=== PATIENT | female | born 1980 | race Caucasian/White ===

== ENCOUNTER → 2016-12-10 | Outpatient (CLI) | payer OTHER ==
[~2016-12-10] MED LIST: /AUGM25TA OR; ACET500C OR; ALENDRONATE OR; CIPR500T19 OR; DETR4CAP OR; GAS; GLUC500T OR; LISI10TA4 OR; MIRALEX OR; PREPARATION H TOP; TRIC145T19 OR; VICODINES TAB OR; [UNRECOGNIZED DRUG - CODE] OR; no home meds
[2016-12-12 11:15] LABS: CARCINOEMBRYONIC ANTIGEN 1.3 NG/ML (<2.5)
[2016-12-12 11:43] LABS: CA 125 26.1 U/ML (<30.2)
[2016-12-16 00:06] LABS: HE4 44 pmol/L (0-150)
== END ==
LOC: M SMT 14:13
PROVIDERS: ATTEND Obstetrics & Gynecology
DX: D39.12 Neoplasm of uncertain behavior of left ovary (principal)

== ENCOUNTER → 2016-12-11 | Outpatient (CLI) | payer OTHER ==
--- NOTE | 2016-12-11 14:54 | REP ---
PELVIC SONOGRAPHY: HISTORY: Neoplasm left ovary. Right oophorectomy. Comparison CT study of the pelvis is from December 01, 2016. Comparison pelvic sonography is from September 11, 2016. PELVIC SONOGRAPHIC FINDINGS: Uterine dimensions are enlarged at 11.3 x 4.5 x 6.8 cm. Endometrial echo 0.9 cm thick. Uterine myometrium is somewhat heterogeneous and a 1.9 x 2.6 x 1.3 cm posterior fibroid is believed to be present on transvaginal imaging. No free fluid is noted. The right ovary could not be visualized and is surgically absent by history. The left ovary is quite enlarged measuring 11.8 x 7.2 x 10.7 cm in overall dimension. Multiple large cystic areas are seen comprising the left ovary. There is a tubular structure measuring 7.3 x 1.1 x 1.4 cm, which may relate to the previous suggestion of hydrosalpinx. There are somewhat thick septations in the cystic mass in the left ovary. Cystic components measure 4.3, 3.7, and 6.3 cm in greatest diameter in the three major cystic components. IMPRESSION: 1. Enlarged somewhat heterogeneous uterus containing a 2.6 cm fibroid. 2. Status post right for oophorectomy. 3. Complex enlargement left ovary up to 7.3 cm in overall size. Thickened septations are seen in the cystic components of the left ovary as noted previously. Questioned hydrosalpinx associated with this. Ovarian neoplasm versus endometrioma. Signed by Manuel Desai MD 12/11/2016 03:27 P
== END ==
LOC: M SMT 09:06
PROVIDERS: ATTEND Obstetrics & Gynecology
DX: D39.12 Neoplasm of uncertain behavior of left ovary (principal)

== ENCOUNTER 2017-04-01 09:10 | Emergency (ER) | payer OTHER ==
[~2017-04-01] VITALS: Ht 157.5 cm; Wt 55.0 kg
[2017-04-01] MEDS ORDERED: BUSP10TA PO (09:32)
[2017-04-01] MEDS ORDERED: ONDANSETRON 4 MG ORAL DISINTEGRATING TAB (S0181) PO ONE (10:30)
[2017-04-01] MEDS ORDERED: PERCOCET 5MG/325MG TAB PO ONE (10:30)
[2017-04-01 10:58] LABS: ANION GAP 9 MEQ/L (8-16); BLOOD UREA NITROGEN 9 MG/DL (7-18); CALCIUM LEVEL 8.4 MG/DL (8.5-10.1); CARBON DIOXIDE LEVEL 29 MEQ/L (21-32); CHLORIDE LEVEL 103 MEQ/L (98-107); GLOMERULAR FILTRATION RATE > 60.0 (>60); GLUCOSE, FASTING 83 MG/DL (70-105); POTASSIUM SERUM 3.2 MEQ/L (3.5-5.1); SODIUM LEVEL 141 MEQ/L (136-145)
[2017-04-01 11:04] LABS: CONTROL LINE UCG INT CTR LINE PRESENT
[2017-04-01 11:21] LABS: BASO # 0.1 K/mm3 (0.0-0.2); BASO % 1.6 % (0.0-1.0); EOS # 0.1 K/mm3 (0.0-0.50); EOS % 2.4 % (0.0-3.0); LARGE UNSTAINED CELL # 0.1 K/mm3 (0.0-0.4); LARGE UNSTAINED CELL % 1.6 % (0.0-4.0); LYMPH # 1.6 K/mm3 (1.5-4.5); MEAN CORPUSCULAR HEMOGLOBIN 30.3 pg (27.0-33.0); MEAN CORPUSCULAR HGB CONC 32.9 g/dl (32.0-36.5); MEAN CORPUSCULAR VOLUME 92.3 fl (80.0-96.0); MONO # 0.5 K/mm3 (0.0-0.8); MONO % 8.7 % (0.0-5.0); NEUTROPHILS # 2.9 K/mm3 (1.8-7.7); NEUTROPHILS % 55.7 % (36.0-66.0); PLATELET COUNT, AUTOMATED 387 k/mm3 (150-450); RED CELL DISTRIBUTION WIDTH 19.2 % (11.5-14.5); WHITE BLOOD COUNT 5.1 K/mm3 (4.0-10.0)
--- NOTE | 2017-04-01 12:09 | REP ---
PELVIC ULTRASOUND: Real-time sonographic evaluation of the pelvis performed utilizing transabdominal and endovaginal technique. Comparison is made with a prior study of 12/11/2016. The urinary bladder is not distended and is empty. The uterus measures 9.1 x 5.0 x 5.6 cm. Endometrial thickness is 13 mm. The patient has had prior right oophorectomy. The left ovary is enlarged measuring 9.1 x 6.1 x 8.1 cm. A complex cystic mass is seen involving the left ovary measuring 7.2 x 4.4 x 5.6 cm appearing similar to the prior study of 12/11/2016. There is no evidence of left ovarian torsion with blood flow seen in the left ovary with duplex Doppler evaluation, RI 0.44. No free fluid is seen. There is a tubular structure adjacent to the ovary suggestive of hydrosalpinx. IMPRESSION: Similar findings compared to a prior study of 12/11/2016 with complex cystic mass involving the left ovary 7.2 cm in maximum diameter with suspected left hydrosalpinx. No torsion or free fluid. Signed by Nino Busch MD 04/02/2017 05:08 P
[2017-04-01] MEDS ORDERED: NORCOTAB PO (12:23)
[2017-04-01] MEDS ORDERED: ZOFR4TAB3 PO (12:23)
[2017-04-01 12:37] VITALS: BP 161/100
== END 2017-04-01 12:45 | disposition home or self-care (01) ==
LOC: M ED 09:52
DX: N83.202 Unspecified ovarian cyst, left side (principal)

== ENCOUNTER → 2017-07-27 | Outpatient (CLI) | payer OTHER ==
[~2017-07-27] MED LIST changes: +BUSP10TA PO; +NORCOTAB PO; +ZOFR4TAB3 PO
[2017-07-27 14:10] LABS: BASO # 0.1 10^3/uL (0.0-0.2); BASO % 2.2 % (0.0-1.0); EOS # 0.2 10^3/uL (0.0-0.50); EOS % 3.9 % (0.0-3.0); IMMATURE GRANULOCYTE % 0.2 % (0-0); LYMPH # 1.3 10^3/uL (1.5-4.5); LYMPH % 30.6 % (24.0-44.0); MEAN CORPUSCULAR HGB CONC 28.4 g/dl (32.0-36.5); MONO # 0.6 10^3/uL (0.0-0.8); MONO % 13.8 % (0.0-5.0); NEUTROPHILS % 49.3 % (36.0-66.0); RED CELL DISTRIBUTION WIDTH 18.9 % (11.5-14.5); WHITE BLOOD COUNT 4.1 10^3/uL (4.0-10.0)
[2017-07-27 14:30] LABS: ALBUMIN 3.7 GM/DL (3.2-5.2); ALBUMIN/GLOBULIN RATIO 1.03 (1.00-1.93); ALKALINE PHOSPHATASE 53 U/L (45-117); ALT/SGPT 16 U/L (12-78); ANION GAP 6 MEQ/L (8-16); AST/SGOT 19 U/L (15-37); BILIRUBIN,TOTAL 0.5 MG/DL (0.2-1.0); BLOOD UREA NITROGEN 6 MG/DL (7-18); CALCIUM LEVEL 8.2 MG/DL (8.5-10.1); CARBON DIOXIDE LEVEL 31 MEQ/L (21-32); CHLORIDE LEVEL 101 MEQ/L (98-107); CHOLESTEROL LEVEL 121 MG/DL (<200); CREATININE FOR GFR 0.72 MG/DL (0.55-1.02); FREE T4 1.04 NG/DL (0.76-1.46); GLOMERULAR FILTRATION RATE > 60.0 (>60); GLUCOSE, FASTING 73 MG/DL (70-105); POTASSIUM SERUM 3.7 MEQ/L (3.5-5.1); SODIUM LEVEL 138 MEQ/L (136-145); TOTAL PROTEIN 7.3 GM/DL (6.4-8.2); TRIGLYCERIDES LEVEL 72 MG/DL (<150)
[2017-07-27 14:35] LABS: MEAN CORPUSCULAR VOLUME 70.6 fl (80.0-96.0)
== END ==
LOC: M SMT 09:54
PROVIDERS: ATTEND Nurse Practitioner Adult Health
DX: N83.292 Other ovarian cyst, left side (principal); N70.11 Chronic salpingitis; D52.9 Folate deficiency anemia, unspecified; Z79.899 Other long term (current) drug therapy; E55.9 Vitamin D deficiency, unspecified; K92.1 Melena; F10.20 Alcohol dependence, uncomplicated

== ENCOUNTER → 2017-07-27 | Outpatient (CLI) | payer OTHER ==
--- NOTE | 2017-07-28 05:18 | REP ---
Clinical: Follow-up ovarian cyst. Comparison: 04/01/2017 . Technique: Transabdominal pelvic ultrasound followed by transvaginal examination for better evaluation of the endometrium and adnexa with color evaluation of the ovaries. Findings: Bladder is collapsed. Heterogeneous anteverted uterus measures 10.2 x 4.3 x 6.8 cm. The endometrial complex measures 16.9 mm thickness. No discrete uterine or endometrial abnormalities are appreciated. The patient is noted to be status post right oophorectomy. The left ovary demonstrates multiple simple and complex cysts and measures greater than 9.7 x 5.6 x 7.8 cm with the largest cyst measuring 5.0 x 4.9 x 4.4 cm. No pelvic fluid or adnexal mass lesion appreciated. Impression: 1. Enlarged left ovary with multiple cysts similar to prior examination. Hydrosalpinx cannot be excluded. 2. Heterogeneous uterus without discrete abnormality. Status post right oophorectomy. Signed by Efraín Virgen MD 07/28/2017 05:10 A
== END ==
LOC: M SMT 09:51
PROVIDERS: ATTEND Obstetrics & Gynecology
DX: N83.209 Unspecified ovarian cyst, unspecified side (principal)

== ENCOUNTER 2017-08-09 03:23 | Emergency (ER) | payer OTHER ==
[~2017-08-09] VITALS: Ht 157.5 cm; Wt 58.6 kg
[2017-08-09] MEDS ORDERED: ACETAMINOPHEN 325 MG TAB PO ONE (04:00)
[2017-08-09 05:03] VITALS: BP 126/89
--- NOTE | 2017-08-09 14:29 | REP ---
Right ankle series: Two views. History: Trauma. Findings: AP and lateral views of the right ankle are obtained. No fracture or subluxation is seen. Impression: Negative limited ankle views. No fracture seen. Signed by Manuel Desai MD 08/09/2017 08:08 A
--- NOTE | 2017-08-09 14:29 | REP ---
Left hip series: Two views. History: Trauma. Findings: AP and frog-leg views of the left hip show smooth rounded femoral head and intact hip joint space. Periarticular soft tissues are unremarkable. No fracture or subluxation is seen. Impression: No fracture noted. Signed by Manuel Desai MD 08/09/2017 08:08 A
== END 2017-08-09 05:04 | disposition home or self-care (01) ==
LOC: M ED 03:23
DX: S90.511A Abrasion, right ankle, initial encounter (principal); T14.8XXA Other injury of unspecified body region, initial encounter; Y04.8XXA Assault by other bodily force, initial encounter; Y92.89 Other specified places as the place of occurrence of the external cause; Y93.89 Activity, other specified; Y99.8 Other external cause status; F17.210 Nicotine dependence, cigarettes, uncomplicated

== ENCOUNTER → 2017-09-13 | Outpatient (REF) | payer OTHER | LOC: M LAB REF 17:38 | PROVIDERS: ATTEND Physician Assistant | DX: R30.0 Dysuria (principal) ==

== ENCOUNTER → 2018-01-26 | Outpatient (CLI) | payer OTHER | LOC: M SMT 13:02 | DX: N83.202 Unspecified ovarian cyst, left side (principal) | CPT/HCPCS: 76830 ==

== ENCOUNTER → 2018-01-31 | Outpatient (CLI) | payer OTHER ==
[2018-01-31 17:53] LABS: BASO # 0.1 10^3/uL (0.0-0.2); BASO % 1.2 % (0.0-1.0); EOS # 0.1 10^3/uL (0.0-0.50); EOS % 3.2 % (0.0-3.0); HEMOGLOBIN 10.5 g/dl (12.0-15.5); IMMATURE GRANULOCYTE % 0.2 % (0-3.0); LYMPH # 1.1 10^3/uL (1.5-4.5); LYMPH % 27.7 % (24.0-44.0); MEAN CORPUSCULAR HEMOGLOBIN 25.5 pg (27.0-33.0); MONO # 0.6 10^3/uL (0.0-0.8); MONO % 14.6 % (0.0-5.0); NEUTROPHILS # 2.2 10^3/uL (1.8-7.7); NEUTROPHILS % 53.1 % (36.0-66.0); PLATELET COUNT, AUTOMATED 325 10^3/uL (150-450); RED BLOOD COUNT 4.12 10^6/uL (4.00-5.40); RED CELL DISTRIBUTION WIDTH 22.6 % (11.5-14.5); WHITE BLOOD COUNT 4.1 10^3/uL (4.0-10.0)
[2018-01-31 18:29] LABS: ESTIMATED AVERAGE GLUCOSE 82 MG/DL (60-110); HEMOGLOBIN A1c 4.5 %
[2018-01-31 18:32] LABS: ALBUMIN 4.1 GM/DL (3.2-5.2); ALBUMIN/GLOBULIN RATIO 1.21 (1.00-1.93); ALKALINE PHOSPHATASE 60 U/L (45-117); ALT/SGPT 28 U/L (12-78); ANION GAP 12 MEQ/L (8-16); AST/SGOT 68 U/L (7-37); BILIRUBIN,TOTAL 0.7 MG/DL (0.2-1.0); BLOOD UREA NITROGEN 8 MG/DL (7-18); CALCIUM LEVEL 8.2 MG/DL (8.5-10.1); CARBON DIOXIDE LEVEL 27 MEQ/L (21-32); CHLORIDE LEVEL 104 MEQ/L (98-107); CHOLESTEROL LEVEL 147 MG/DL (<200); CHOLESTEROL RISK RATIO 1.547 (<5); CREATININE FOR GFR 0.78 MG/DL (0.55-1.30); FREE T4 0.75 NG/DL (0.76-1.46); GLOMERULAR FILTRATION RATE > 60.0 (>60); GLUCOSE, FASTING 91 MG/DL (70-100); HDL CHOLESTEROL 95 MG/DL (>40); LDL CHOLESTEROL 5.6 MG/DL (<100); NON-HDL-C 52 MG/DL; POTASSIUM SERUM 3.8 MEQ/L (3.5-5.1); SODIUM LEVEL 143 MEQ/L (136-145); TOTAL PROTEIN 7.5 GM/DL (6.4-8.2); TRIGLYCERIDES LEVEL 232 MG/DL (<150)
== END ==
LOC: M LRY 08:04
DX: F10.20 Alcohol dependence, uncomplicated (principal); Z79.899 Other long term (current) drug therapy; E55.9 Vitamin D deficiency, unspecified
CPT/HCPCS: 84443

== ENCOUNTER 2018-03-18 23:25 | Emergency (ER) | payer OTHER | END 2018-03-19 01:21 | disposition left against medical advice (07) | LOC: M ED 23:25 | DX: Z53.29 Procedure and treatment not carried out because of patient's decision for other reasons (principal) ==

== ENCOUNTER 2018-05-12 16:50 | Inpatient (IN) | payer OTHER ==
[2018-05-12 18:09] LABS: AMMONIA 69 uMOL/L (<32)
[2018-05-12 18:09] LABS: HEMATOCRIT 24.1 % (36.0-47.0); HEMOGLOBIN 8.3 g/dl (12.0-15.5); MEAN CORPUSCULAR HEMOGLOBIN 31.3 pg (27.0-33.0); MEAN CORPUSCULAR HGB CONC 34.4 g/dl (32.0-36.5); MEAN CORPUSCULAR VOLUME 90.9 fl (80.0-96.0); PLATELET COUNT, AUTOMATED 258 10^3/uL (150-450); RED BLOOD COUNT 2.65 10^6/uL (4.00-5.40); RED CELL DISTRIBUTION WIDTH 26.5 % (11.5-14.5); WHITE BLOOD COUNT 5.5 10^3/uL (4.0-10.0)
[2018-05-12 18:13] LABS: ADD MANUAL DIFFER YES; DIFF SLIDE NUMBER 281; POSITIVE MORPH POS FLAG
[2018-05-12 18:14] LABS: PROTHROMBIN TIME 16.4 SECONDS (12.1-14.4)
[2018-05-12 18:18] LABS: LACTIC ACID SEPSIS PROTOCOL 5.1 MMOL/L (0.4-2.0)
[2018-05-12] MEDS: OXAZEPAM 15 MG CAP PO (18:18)
[2018-05-12 18:19] LABS: ALBUMIN 3.4 GM/DL (3.2-5.2); ALBUMIN/GLOBULIN RATIO 1.03 (1.00-1.93); ALKALINE PHOSPHATASE 96 U/L (45-117); ALT/SGPT 33 U/L (12-78); ANION GAP 13 MEQ/L (8-16); AST/SGOT 97 U/L (7-37); BILIRUBIN,DIRECT 0.5 MG/DL (0.0-0.2); BILIRUBIN,TOTAL 1.6 MG/DL (0.2-1.0); BLOOD UREA NITROGEN 7 MG/DL (7-18); CALCIUM LEVEL 7.9 MG/DL (8.5-10.1); CARBON DIOXIDE LEVEL 29 MEQ/L (21-32); CHLORIDE LEVEL 98 MEQ/L (98-107); CK-MB VALUE MASS 1.6 NG/ML (<3.6); CPK CREATINE PHOSPHOKINASE 108 U/L (26-192); CREATININE FOR GFR 0.57 MG/DL (0.55-1.30); ETHYL ALCOHOL (ETHANOL) 0.251 % (0.000-0.010); GLOMERULAR FILTRATION RATE > 60.0 (>60); GLUCOSE, FASTING 96 MG/DL (70-100); LIPASE 370 U/L (73-393); MB/CK RELATIVE INDEX 1.48 (< OR =4); NT-PRO BNP 43 PG/ML (<125); POTASSIUM SERUM 2.9 MEQ/L (3.5-5.1); SODIUM LEVEL 140 MEQ/L (136-145); TOTAL PROTEIN 6.7 GM/DL (6.4-8.2); TROPONIN I < 0.02 NG/ML (< 0.10)
[2018-05-12 18:27] LABS: ANISOCYTOSIS 3+; ATYPICAL LYMPH 2 % (0-5); EOSINOPHILS 3 % (0-5); LYMPHOCYTES 26 % (16-52); MONOCYTES 3 % (0-8); NEUTROPHILS 66 % (35-75)
[2018-05-12 18:28] LABS: PLATELET ESTIMATE NORMAL (NORMAL)
[2018-05-12] MEDS: DILUENT IV (18:30)
[2018-05-12] MEDS: NS IV (18:30)
[2018-05-12 18:38] LABS: STOMATOCYTES 1+
[2018-05-12] MEDS: POTASSIUM CHLORIDE 10 MEQ SR TABLET PO (18:43)
[2018-05-12] MEDS: CEFEPIME HCL 2 GM in D5W MINI-BAG PLUS 50 ML IV (18:43)
[2018-05-12 18:48] LABS: ABG BASE EXCESS 2.4 (-2.0-2.0); ABG HCO3 24.5 MEQ/L (22.0-26.0); ABG O2 SATURATION 97.9 % (95.0-99.0); ABG PARTIAL PRESSURE CO2 28.7 mmHg (35.0-45.0); ABG PARTIAL PRESSURE O2 114.8 mmHg (75.0-100.0); ABG STANDARD HCO3 26.6 MEQ/L (22.0-26.0); ABG TOTAL CO2 25.4 MEQ/L (22.0-29.0); ABG pH (ARTERIAL) 7.549 UNITS (7.350-7.450)
[2018-05-12 18:56] LABS: AMYLASE 44 U/L (25-115); C REACTIVE PROTEIN QUANTITATIV < 0.30 MG/DL (0.00-0.30)
[2018-05-12 18:57] LABS: PARTIAL THROMBOPLASTIN TIME 25.7 SECONDS (25.4-37.6)
[2018-05-12] MEDS ORDERED: ISOVUE-370 76% 100ML VIAL (Q9967) As Ordered (18:57)
[2018-05-12 21:42] LABS: CPK CREATINE PHOSPHOKINASE 89 U/L (26-192); TROPONIN I < 0.02 NG/ML (< 0.10)
[2018-05-12 21:45] LABS: CK-MB VALUE MASS 1.4 NG/ML (<3.6); MB/CK RELATIVE INDEX 1.57 (< OR =4)
[2018-05-12 23:52] LABS: NT-PRO BNP 41 PG/ML (<125)
[2018-05-13] MEDS: POTASSIUM CHLORIDE 10 MEQ SR TABLET PO ×2 (00:30→02:42)
[2018-05-13] MEDS: MAG SULF 1GM/100ML (MAG RUN) 1 GM in APPROPRIATE DILUENT 1 EA IV ×3 (00:31→08:34)
[2018-05-13] MEDS ORDERED: LORazepam 2 MG TAB PO (01:30)
[2018-05-13] MEDS ORDERED: ONDANSETRON 4 MG TAB (S0181) PO (01:45)
[2018-05-13] MEDS ORDERED: BISACODYL 5 MG TAB PO (01:45)
[2018-05-13] MEDS: GABAPENTIN 300 MG CAP PO ×4 (02:42→21:04)
[2018-05-13] MEDS: FUROSEMIDE 40 MG/4 ML VIAL (J1940) IV ×3 (02:42→16:53)
[2018-05-13] MEDS: LORazepam 2 MG TAB PO ×4 (02:42→21:03)
[2018-05-13] MEDS: HEPARIN SOD (PORCINE) 5000 UNITS/ML VIAL SC ×3 (05:40→21:04)
[2018-05-13] MEDS: ACETAMINOPHEN TAB 650MG DOSE (2X325MG) PO ×2 (05:43→13:52)
[2018-05-13 05:50] LABS: HEMATOCRIT 22.4 % (36.0-47.0); HEMOGLOBIN 7.7 g/dl (12.0-15.5); MEAN CORPUSCULAR HEMOGLOBIN 30.4 pg (27.0-33.0); MEAN CORPUSCULAR HGB CONC 34.4 g/dl (32.0-36.5); MEAN CORPUSCULAR VOLUME 88.5 fl (80.0-96.0); PLATELET COUNT, AUTOMATED 219 10^3/uL (150-450); RED BLOOD COUNT 2.53 10^6/uL (4.00-5.40); RED CELL DISTRIBUTION WIDTH 26.3 % (11.5-14.5); WHITE BLOOD COUNT 4.3 10^3/uL (4.0-10.0)
[2018-05-13 06:11] LABS: ESTIMATED AVERAGE GLUCOSE 123 MG/DL (60-110); HEMOGLOBIN A1c 5.9 %
[2018-05-13 06:13] LABS: LACTIC ACID SEPSIS PROTOCOL 2.3 MMOL/L (0.4-2.0)
[2018-05-13 06:27] LABS: ALBUMIN 3.1 GM/DL (3.2-5.2); ALBUMIN/GLOBULIN RATIO 0.97 (1.00-1.93); ALKALINE PHOSPHATASE 89 U/L (45-117); ALT/SGPT 30 U/L (12-78); ANION GAP 10 MEQ/L (8-16); AST/SGOT 84 U/L (7-37); BILIRUBIN,TOTAL 0.7 MG/DL (0.2-1.0); BLOOD UREA NITROGEN 6 MG/DL (7-18); CALCIUM LEVEL 7.1 MG/DL (8.5-10.1); CARBON DIOXIDE LEVEL 31 MEQ/L (21-32); CHLORIDE LEVEL 99 MEQ/L (98-107); CREATININE FOR GFR 0.63 MG/DL (0.55-1.30); GLOMERULAR FILTRATION RATE > 60.0 (>60); GLUCOSE, FASTING 108 MG/DL (70-100); MAGNESIUM LEVEL 1.3 MG/DL (1.8-2.4); NT-PRO BNP 54 PG/ML (<125); POTASSIUM SERUM 3.5 MEQ/L (3.5-5.1); SODIUM LEVEL 140 MEQ/L (136-145); TOTAL PROTEIN 6.3 GM/DL (6.4-8.2)
[2018-05-13 07:29] LABS: FERRITIN 158 NG/ML (8-252); IRON (FE) 258 UG/DL (50-170); PERCENT SATURATION 97.4 % (13.2-45.0); TOTAL IRON BINDING CAPACITY 265 UG/DL (250-450)
[2018-05-13 07:32] LABS: APPEARANCE, URINE CLEAR (CLEAR); BACTERIA, URINE AUTO NEGATIVE (NEGATIVE); BILIRUBIN, URINE AUTO NEGATIVE (NEGATIVE); BLOOD, URINE BLOOD 1+ (NEGATIVE); COLOR, URINE COLORLESS (YELLOW); GLUCOSE, URINE (UA) AUTO NEGATIVE (NEGATIVE); KETONE, URINE AUTO NEGATIVE (NEGATIVE); LEUKOCYTE ESTERASE, URINE AUTO NEGATIVE (NEGATIVE); MUCUS, URINE SMALL (NEGATIVE); NITRITE, URINE AUTO NEGATIVE (NEGATIVE); PROTEIN, URINE AUTO NEGATIVE (NEGATIVE); RBC, URINE AUTO 0 /HPF (0-3); SPECIFIC GRAVITY URINE AUTO 1.005 (1.002-1.035); SQUAMOUS EPITHELIAL CELL UR AU 0 /HPF (0-6); UROBILINOGEN, URINE AUTO 0.2 mg/dL (0.0-2.0); WBC, URINE AUTO 0 /HPF (0-3)
[2018-05-13] MEDS: MULTIVITAMINS/MINERALS THERAP 1 TAB PO (08:34)
[2018-05-13] MEDS: FOLIC ACID 1 MG TAB PO (08:34)
[2018-05-13] MEDS: MAGNESIUM OXIDE 400 MG TAB (MAG-OX) PO ×3 (08:34→21:03)
[2018-05-13] MEDS: THIAMINE 100 MG TAB PO (08:35)
[2018-05-13 10:54] LABS: IMMEDIATE SPIN CROSSMATCH 1 1
[2018-05-13 11:05] LABS: VITAMIN B12 LEVEL 126 PG/ML (247-911)
[2018-05-13 11:06] LABS: FOLATE 2.8 NG/ML (>5.4)
[2018-05-14] MEDS: LORazepam 2 MG TAB PO ×2 (03:28→07:35)
[2018-05-14] MEDS: HEPARIN SOD (PORCINE) 5000 UNITS/ML VIAL SC (05:55)
[2018-05-14 06:42] LABS: BASO % 0.6 % (0.0-1.0); EOS # 0.2 10^3/uL (0.0-0.50); EOS % 4.1 % (0.0-3.0); HEMATOCRIT 26.7 % (36.0-47.0); HEMOGLOBIN 9.4 g/dl (12.0-15.5); LYMPH # 1.3 10^3/uL (1.5-4.5); LYMPH % 25.6 % (24.0-44.0); MEAN CORPUSCULAR HEMOGLOBIN 31.4 pg (27.0-33.0); MEAN CORPUSCULAR HGB CONC 35.2 g/dl (32.0-36.5); MEAN CORPUSCULAR VOLUME 89.3 fl (80.0-96.0); MONO # 0.3 10^3/uL (0.0-0.8); MONO % 5.9 % (0.0-5.0); NEUTROPHILS # 3.2 10^3/uL (1.8-7.7); NEUTROPHILS % 61.8 % (36.0-66.0); PLATELET COUNT, AUTOMATED 198 10^3/uL (150-450); RED BLOOD COUNT 2.99 10^6/uL (4.00-5.40); RED CELL DISTRIBUTION WIDTH 24.6 % (11.5-14.5); WHITE BLOOD COUNT 5.1 10^3/uL (4.0-10.0)
[2018-05-14 07:06] LABS: ANION GAP 11 MEQ/L (8-16); BLOOD UREA NITROGEN 6 MG/DL (7-18); CALCIUM LEVEL 8.1 MG/DL (8.5-10.1); CARBON DIOXIDE LEVEL 28 MEQ/L (21-32); CHLORIDE LEVEL 99 MEQ/L (98-107); CREATININE FOR GFR 0.59 MG/DL (0.55-1.30); GLOMERULAR FILTRATION RATE > 60.0 (>60); GLUCOSE, FASTING 128 MG/DL (70-100); MAGNESIUM LEVEL 1.9 MG/DL (1.8-2.4); SODIUM LEVEL 138 MEQ/L (136-145)
[2018-05-14 07:16] LABS: POTASSIUM SERUM 2.7 MEQ/L (3.5-5.1)
[2018-05-14] MEDS: GABAPENTIN 300 MG CAP PO (07:34)
[2018-05-14] MEDS: MAGNESIUM OXIDE 400 MG TAB (MAG-OX) PO (07:34)
[2018-05-14] MEDS: POTASSIUM CHLORIDE 10 MEQ SR TABLET PO ×3 (07:34→14:29)
[2018-05-14] MEDS: MULTIVITAMINS/MINERALS THERAP 1 TAB PO (07:35)
[2018-05-14] MEDS: FOLIC ACID 1 MG TAB PO (07:35)
[2018-05-14] MEDS: THIAMINE 100 MG TAB PO (07:35)
[2018-05-14] MEDS: FUROSEMIDE 40 MG/4 ML VIAL (J1940) IV (07:35)
[2018-05-14] MEDS ORDERED: SLF 3 ML SYR IV ×2 (08:30→14:00)
[2018-05-14] MEDS ORDERED: FOLIC ACID 1 MG TAB PO (09:00)
[2018-05-14] MEDS: CYANOCOBALAMIN 500 MCG TAB PO (10:08)
[2018-05-14] MEDS: CYANOCOBALAMIN 1,000 MCG/ML VIAL (J3420) SC (10:09)
[2018-05-14 12:29] LABS: ANION GAP 10 MEQ/L (8-16); BLOOD UREA NITROGEN 6 MG/DL (7-18); CARBON DIOXIDE LEVEL 30 MEQ/L (21-32); CHLORIDE LEVEL 100 MEQ/L (98-107); CREATININE FOR GFR 0.76 MG/DL (0.55-1.30); GLOMERULAR FILTRATION RATE > 60.0 (>60); GLUCOSE, FASTING 124 MG/DL (70-100); POTASSIUM SERUM 3.6 MEQ/L (3.5-5.1); SODIUM LEVEL 140 MEQ/L (136-145)
== END 2018-05-14 14:33 | disposition home or self-care (01) | DRG 663 ==
LOC: M ED INP 05-13 01:33 → M PCU 05-13 02:28 → M ED 16:50
PROC: 30233N1 Transfusion of Nonautologous Red Blood Cells into Peripheral Vein, Percutaneous Approach (ICD-10-PCS; principal; 2018-05-13)
DX: D50.9 Iron deficiency anemia, unspecified (principal); E87.2 Acidosis; F10.20 Alcohol dependence, uncomplicated; E87.6 Hypokalemia; R60.0 Localized edema; F17.210 Nicotine dependence, cigarettes, uncomplicated; D51.9 Vitamin B12 deficiency anemia, unspecified

== ENCOUNTER → 2018-07-17 | Outpatient (CLI) | payer OTHER | LOC: M WUC 10:01 | DX: S63.502A Unspecified sprain of left wrist, initial encounter (principal); X58.XXXA Exposure to other specified factors, initial encounter; Y92.9 Unspecified place or not applicable | CPT/HCPCS: 73110 ==

== ENCOUNTER → 2019-06-04 | Outpatient (REF) | payer OTHER ==
[~2019-06-04] MED LIST changes: +CYAN1000VL SC; +FOLI1TAB11 PO; +HYDR-3715 PO; +KLOR20TA42 PO; +LASI20TA3 PO; -NORCOTAB PO; +THIA100TA PO; +VITA500T17 PO; +VITMTA PO; +ZOFR4TAB14 PO; -ZOFR4TAB3 PO
[2019-06-04 18:51] LABS: HEMATOCRIT 40.3 % (36.0-47.0); HEMOGLOBIN 11.1 g/dl (12.0-15.5); MEAN CORPUSCULAR HEMOGLOBIN 20.2 pg (27.0-33.0); MEAN CORPUSCULAR HGB CONC 27.5 g/dl (32.0-36.5); MEAN CORPUSCULAR VOLUME 73.3 fl (80.0-96.0); PLATELET COUNT, AUTOMATED 453 10^3/uL (150-450); WHITE BLOOD COUNT 6.7 10^3/uL (4.0-10.0)
== END ==
LOC: M LAB REF 10:41
PROVIDERS: ATTEND Internal Medicine Cardiovascular Disease
DX: D64.9 Anemia, unspecified (principal)

== ENCOUNTER → 2019-06-20 | Outpatient (CLI) | payer OTHER | LOC: M LAB 14:50 | PROVIDERS: ATTEND Internal Medicine Gastroenterology | DX: D64.9 Anemia, unspecified (principal) ==

== ENCOUNTER → 2019-06-20 | Outpatient (CLI) | payer OTHER ==
[2019-06-20 17:23] LABS: HEMATOCRIT 42.9 % (36.0-47.0); HEMOGLOBIN 12.5 g/dl (12.0-15.5); MEAN CORPUSCULAR HGB CONC 29.1 g/dl (32.0-36.5); MEAN CORPUSCULAR VOLUME 75.7 fl (80.0-96.0); PLATELET COUNT, AUTOMATED 424 10^3/uL (150-450); RED BLOOD COUNT 5.67 10^6/uL (4.00-5.40); WHITE BLOOD COUNT 7.3 10^3/uL (4.0-10.0)
== END ==
LOC: M WUC 14:22
PROVIDERS: ATTEND Internal Medicine Cardiovascular Disease
DX: D64.9 Anemia, unspecified (principal)

== ENCOUNTER → 2019-07-02 | Outpatient (CLI) | payer OTHER ==
[~2019-07-02] MED LIST changes: +ALPR0.5T3 PO; +FERR32TA PO; +METF-723 PO; +PANT40TA3 PO; +PAXI20TA29 PO
[2019-07-02 18:47] LABS: HEMATOCRIT 41.7 % (36.0-47.0); HEMOGLOBIN 12.8 g/dl (12.0-15.5); MEAN CORPUSCULAR HEMOGLOBIN 23.9 pg (27.0-33.0); MEAN CORPUSCULAR HGB CONC 30.7 g/dl (32.0-36.5); MEAN CORPUSCULAR VOLUME 77.9 fl (80.0-96.0); PLATELET COUNT, AUTOMATED 393 10^3/uL (150-450); RED BLOOD COUNT 5.35 10^6/uL (4.00-5.40); WHITE BLOOD COUNT 9.8 10^3/uL (4.0-10.0)
== END ==
LOC: M WUC 13:18
PROVIDERS: ATTEND Internal Medicine Cardiovascular Disease
DX: D64.9 Anemia, unspecified (principal)

== ENCOUNTER → 2019-07-05 | Outpatient (CLI) | payer OTHER ==
--- NOTE | 2019-07-06 06:55 | REP ---
Clinical: Anemia. Technique: Real time dietrich scale and color evaluation using curved array transducer. Findings: Liver and pancreas are normal in contour, size, echogenicity without focal hepatic or pancreatic lesion identified. Gallbladder demonstrates gallstones without wall thickening or pericholecystic fluid. No biliary ductal dilatation is appreciated and the common bile duct measures 3.3 mm diameter. The right kidney is normal in reniform shape and echogenicity without hydronephrosis and measures 12.3 x 6.1 x 3.8 cm. No ascites. Impression: Cholelithiasis. Electronically Signed by Efraín Virgen MD 07/06/2019 06:46 A
== END ==
LOC: M RAD 08:29
PROVIDERS: ATTEND Internal Medicine Gastroenterology
DX: D64.9 Anemia, unspecified (principal)

== ENCOUNTER → 2019-07-12 | Outpatient (CLI) | payer OTHER, MEDICAID ==
[2019-07-12 20:46] LABS: HEMATOCRIT 39.4 % (36.0-47.0); HEMOGLOBIN 11.8 g/dl (12.0-15.5); MEAN CORPUSCULAR HGB CONC 29.9 g/dl (32.0-36.5); MEAN CORPUSCULAR VOLUME 80.1 fl (80.0-96.0); PLATELET COUNT, AUTOMATED 501 10^3/uL (150-450); RED BLOOD COUNT 4.92 10^6/uL (4.00-5.40); WHITE BLOOD COUNT 7.6 10^3/uL (4.0-10.0)
== END ==
LOC: M WUC 15:53
PROVIDERS: ATTEND Internal Medicine Cardiovascular Disease
DX: D64.9 Anemia, unspecified (principal)

== ENCOUNTER → 2019-07-12 | Outpatient (CLI) | payer OTHER, MEDICAID ==
[2019-07-12 20:46] LABS: BASO # 0.1 10^3/uL (0.0-0.2); BASO % 1.2 % (0.0-1.0); EOS # 0.4 10^3/uL (0.0-0.5); EOS % 4.5 % (0.0-3.0); HEMATOCRIT 39.1 % (36.0-47.0); HEMOGLOBIN 11.5 g/dl (12.0-15.5); LYMPH # 2.1 10^3/uL (1.5-5.0); LYMPH % 25.1 % (24.0-44.0); MEAN CORPUSCULAR HEMOGLOBIN 23.4 pg (27.0-33.0); MEAN CORPUSCULAR HGB CONC 29.4 g/dl (32.0-36.5); MEAN CORPUSCULAR VOLUME 79.6 fl (80.0-96.0); MONO # 0.9 10^3/uL (0.0-0.8); MONO % 10.1 % (0.0-5.0); NEUTROPHILS # 4.9 10^3/uL (1.5-8.5); NEUTROPHILS % 58.9 % (36.0-66.0); PLATELET COUNT, AUTOMATED 530 10^3/uL (150-450); RED BLOOD COUNT 4.91 10^6/uL (4.00-5.40); WHITE BLOOD COUNT 8.4 10^3/uL (4.0-10.0)
[2019-07-12 21:32] LABS: PLATELET ESTIMATE INCREASED (NORMAL)
[2019-07-12 21:33] LABS: ANISOCYTOSIS 1+; HYPOCHROMASIA 1+; MICROCYTOSIS 1+
[2019-07-12 21:34] LABS: OVALOCYTES 1+; POIKILOCYTOSIS 1+; TEAR DROP CELLS 1+
== END ==
LOC: M WUC 15:48
PROVIDERS: ATTEND Physician Assistant Medical
DX: D64.9 Anemia, unspecified (principal)

== ENCOUNTER → 2019-07-22 | Outpatient (CLI) | payer OTHER ==
[~2019-07-22] MED LIST changes: +PARO15TA PO
--- NOTE | 2019-07-22 11:37 | REP ---
PELVIC ULTRASOUND: Real-time sonographic evaluation of the pelvis performed. Patient declined endovaginal exam. Comparison 01/26/2018. The uterus measures 13.3 x 3.9 x 7.4 cm. Endometrial thickness is 12.0 mm. There is no endometrial fluid collection. Right ovary has been previously removed. Left ovary measures 8.6 x 6.1 x 8.3 cm. Prior measurements were 8.2 x 5.6 x 6.5 cm. There is an anechoic cyst measuring 3.2 x 1.8 x 3.2 cm. An adjacent cyst with low level echoes and debris measures 7.4 x 4.9 x 7.5 cm. This was previously seen on the prior study and at that time it measured 7.1 x 4.5 x 5.1 cm. Therefore there may be slight increase in size of this cyst. Blood flow is seen in the left ovary with no torsion. No free fluid is seen. Urinary bladder measures 7.3 x 5.3 x 8.3 cm. IMPRESSION: Status post right oophorectomy. Dominant cyst with low level echoes left ovary may have slightly increased in size compared to prior study of 01/26/2018. There is an adjacent anechoic cyst with a maximum diameter 3.2 cm. Electronically Signed by Nino Busch MD 07/26/2019 08:47 A
== END ==
LOC: M RAD 09:50
PROVIDERS: ATTEND Specialist
DX: N83.202 Unspecified ovarian cyst, left side (principal)

== ENCOUNTER → 2019-07-29 | Outpatient (CLI) | payer OTHER ==
[2019-07-29 18:48] LABS: HEMATOCRIT 41.3 % (36.0-47.0); HEMOGLOBIN 12.4 g/dl (12.0-15.5); MEAN CORPUSCULAR HEMOGLOBIN 24.6 pg (27.0-33.0); MEAN CORPUSCULAR VOLUME 81.9 fl (80.0-96.0); PLATELET COUNT, AUTOMATED 492 10^3/uL (150-450); RED BLOOD COUNT 5.04 10^6/uL (4.00-5.40); WHITE BLOOD COUNT 7.1 10^3/uL (4.0-10.0)
== END ==
LOC: M WUC 11:13
PROVIDERS: ATTEND Internal Medicine Cardiovascular Disease
DX: D64.9 Anemia, unspecified (principal)

== ENCOUNTER 2019-08-08 10:35 | Day surgery (SDC) | payer OTHER ==
[~2019-08-08] VITALS: Ht 157.5 cm; Wt 54.9 kg
[~2019-08-08 10:35] MED LIST changes: +NS 1,000 ML IV ONE
[2019-08-08] MEDS ORDERED: LIDOCAINE 2% INJ 100 MG/5 ML SDV (FOR ANES.) As Ordered ONE (11:23)
[2019-08-08] MEDS ORDERED: PROPOFOL 200 MG/20 ML VIAL As Ordered ONE (11:23)
[2019-08-08] MEDS ORDERED: fentaNYL 100 MCG/2 ML INJECTION (J3010) As Ordered ONE (12:36)
--- NOTE | 2019-08-08 12:50 | ROOR ---
Patient Name: Ricki Sepulveda Procedure Date: 08/08/2019 12:30 PM Date of : 1980 Age: 39 Room: [facility] Gender: Female Note Status: Finalized Procedure: Upper Endoscopy + Biopsies Indications: Iron deficiency anemia, Unexplained iron deficiency anemia Providers: Paul Zapien MD Referring MD: MIKO Cristobal Requesting Provider: Medicines: Monitored Anesthesia Care Complications: No immediate complications. Procedure: Pre-Anesthesia Assessment: - The heart rate, respiratory rate, oxygen saturations, blood pressure, adequacy of pulmonary ventilation, and response to care were monitored throughout the procedure. The Endoscope was introduced through the mouth, and advanced to the second part of duodenum. The upper GI endoscopy was accomplished without difficulty. The patient tolerated the procedure well. Findings: The Z-line was regular and was found 40 cm from the incisors. No other significant abnormalities were identified in a careful examination of the stomach. Biopsies were taken with a cold forceps in the gastric antrum for Helicobacter pylori testing. The exam of the duodenum was otherwise normal. Biopsies for histology were taken with a cold forceps in the first portion of the duodenum for evaluation of celiac disease. The exam was otherwise without abnormality. Impression: - Z-line regular, 40 cm from the incisors. - The examination was otherwise normal. - Biopsies were taken with a cold forceps for Helicobacter pylori testing. - Biopsies were taken with a cold forceps for evaluation of celiac disease. - The examination was otherwise normal. Recommendation: - Patient has a contact number available for emergencies. The signs and symptoms of potential delayed complications were discussed with the patient. Return to normal activities tomorrow. Written discharge instructions were provided to the patient. - High fiber diet. - Discharge patient to home. - Continue present medications. - Await pathology results. - Telephone GI clinic for pathology results in 1 week. - Return to referring physician. - The findings and recommendations were discussed with the patient's family. Paul Zapien MD Paul Zapien MD 08/08/2019 12:49:46 PM Electronically signed by Paul Zapien MD Number of Addenda: 0 Note Initiated On: 08/08/2019 12:30 PM Estimated Blood Loss: Estimated blood loss: none.
--- NOTE | 2019-08-08 13:06 | ROOR ---
Patient Name: Ricki Sepulveda Procedure Date: 08/08/2019 12:31 PM Date of : 1980 Age: 39 Room: [facility] Gender: Female Note Status: Finalized Procedure: Total Colonoscopy to Cecum Indications: Iron deficiency anemia Providers: Paul Zapien MD Referring MD: MIKO Cristoabl Requesting Provider: Medicines: Monitored Anesthesia Care Complications: No immediate complications. Procedure: Pre-Anesthesia Assessment: - The heart rate, respiratory rate, oxygen saturations, blood pressure, adequacy of pulmonary ventilation, and response to care were monitored throughout the procedure. The Colonoscope was introduced through the anus and advanced to the cecum, identified by appendiceal orifice and ileocecal valve. The colonoscopy was performed without difficulty. The patient tolerated the procedure well. The quality of the bowel preparation was excellent. Findings: The perianal and digital rectal examinations were normal. Internal hemorrhoids were found during retroflexion. The hemorrhoids were small and Grade I (internal hemorrhoids that do not prolapse). No other significant abnormalities were identified in a careful examination of the remainder of the colon. The exam was otherwise without abnormality on direct and retroflexion views. Impression: - Internal hemorrhoids. - The examination was otherwise normal on direct and retroflexion views. - No specimens collected. - The exam was otherwise normal to the cecum. Recommendation: - Patient has a contact number available for emergencies. The signs and symptoms of potential delayed complications were discussed with the patient. Return to normal activities tomorrow. Written discharge instructions were provided to the patient. - High fiber diet. - Discharge patient to home. - Continue present medications. - Repeat colonoscopy at age 52 for screening purposes. - Return to referring physician. - The findings and recommendations were discussed with the patient's family. Paul Zapien MD Paul Zapien MD 08/08/2019 1:05:26 PM Electronically signed by Paul Zapien MD Number of Addenda: 0 Note Initiated On: 08/08/2019 12:31 PM Estimated Blood Loss: Estimated blood loss: none.
[2019-08-08 13:46] VITALS: BP 126/88
== END 2019-08-08 13:48 | disposition home or self-care (01) ==
LOC: M OPP 10:35
PROVIDERS: ATTEND Internal Medicine Gastroenterology
DX: K64.0 First degree hemorrhoids (principal); D50.9 Iron deficiency anemia, unspecified; Z79.84 Long term (current) use of oral hypoglycemic drugs; Z79.899 Other long term (current) drug therapy; F17.210 Nicotine dependence, cigarettes, uncomplicated
CPT/HCPCS: 43239; 45378; 88305; J3010

== ENCOUNTER → 2019-08-11 | Outpatient (CLI) | payer OTHER ==
[~2019-08-11] MED LIST changes: -NS 1,000 ML IV ONE
[2019-08-11 17:06] LABS: FREE T4 0.72 NG/DL (0.76-1.46); RHEUMATOID FACTOR QUANT < 10.0 IU/ML (<15.0); TOTAL PROTEIN 7.4 GM/DL (6.4-8.2)
[2019-08-11 17:08] LABS: VITAMIN B12 LEVEL 261 PG/ML
[2019-08-11 17:10] LABS: FOLATE 18.1 NG/ML
[2019-08-11 17:46] LABS: HEMOGLOBIN A1c 5.1 %
[2019-08-15 11:09] LABS: ALBUMIN 4.11 GM/DL (3.29-5.55); ALBUMIN % 55.6 % (55.8-66.1); ALPHA-1-GLOBULIN % 4.4 % (2.9-4.9); ALPHA-1-GLOBULINS 0.33 GM/DL (0.17-0.41); ALPHA-2-GLOBULINS 0.91 GM/DL (0.42-0.99); ALPHA-2-GLOBULINS % 12.3 % (7.1-11.8); BETA-1-GLOBULINS 0.56 GM/DL (0.28-0.60); BETA-1-GLOBULINS % 7.5 % (4.7-7.2); BETA-2-GLOBULINS 0.43 GM/DL (0.19-0.55); BETA-2-GLOBULINS % 5.8 % (3.2-6.5); GAMMA GLOBULIN % 14.4 % (11.1-18.8); GAMMA GLOBULINS 1.07 GM/DL (0.65-1.58)
[2019-08-16 10:13] LABS: DRVV SCREEN 36.2 SEC
[2019-08-16 10:16] LABS: PTT LUPUS TYPE ANTICOAG SCREEN 0.9 (0-1.2)
[2019-08-16 14:07] LABS: ANTINUCLEAR ANTIBODIES DIRECT Negative (Negative); VITAMIN B1 LEVEL WHOLE BLOOD 140.4 nmol/L (66.5-200.0); VITAMIN B6,PYRIDOXAL PHOSPHATE 9.9 ug/L (2.0-32.8); VITAMIN E(ALPHA TOCOPHEROL) 9.8 mg/L (5.9-19.4); VITAMIN E(GAMMA TOCOPHEROL) 0.8 mg/L (0.7-4.9)
== END ==
LOC: M WUC 11:34
PROVIDERS: ATTEND Psychiatry & Neurology Neurology
DX: G62.9 Polyneuropathy, unspecified (principal); M79.671 Pain in right foot; M79.672 Pain in left foot

== ENCOUNTER → 2019-08-11 | Outpatient (CLI) | payer OTHER ==
[2019-08-11 16:48] LABS: HEMATOCRIT 44.5 % (36.0-47.0); HEMOGLOBIN 13.7 g/dl (12.0-15.5); MEAN CORPUSCULAR HGB CONC 30.8 g/dl (32.0-36.5); MEAN CORPUSCULAR VOLUME 84.6 fl (80.0-96.0); PLATELET COUNT, AUTOMATED 424 10^3/uL (150-450); RED BLOOD COUNT 5.26 10^6/uL (4.00-5.40); WHITE BLOOD COUNT 6.9 10^3/uL (4.0-10.0)
== END ==
LOC: M WUC 11:39
PROVIDERS: ATTEND Internal Medicine Cardiovascular Disease
DX: D64.9 Anemia, unspecified (principal)

== ENCOUNTER → 2019-08-12 | Outpatient (CLI) | payer OTHER ==
--- NOTE | 2019-08-12 15:46 | REP ---
Clinical: Trauma. Pain. Technique: AP, lateral, bilateral oblique views left wrist. Findings: The carpal bones, surrounding osseous structures, soft tissues, and joint spaces are normal. There is no evidence for acute fracture or dislocation. No subcutaneous emphysema or radiodense foreign body. Impression: Normal age-appropriate wrist series. No acute fracture or obvious pathology. Electronically Signed by Efraín Virgen MD 08/12/2019 03:38 P
== END ==
LOC: M WUC 15:18
PROVIDERS: ATTEND Physician Assistant
DX: M25.532 Pain in left wrist (principal)

== ENCOUNTER 2020-03-11 11:37 | Emergency (ER) | payer OTHER ==
[~2020-03-11] VITALS: Ht 154.9 cm; Wt 58.2 kg
[~2020-03-11 11:37] MED LIST changes: +NEUR300C PO; -PARO15TA PO; +PARO30TA4 PO; +XANA0.25 PO
[2020-03-11] MEDS ORDERED: PAXI40TA10 PO (11:52)
[2020-03-11] MEDS ORDERED: BOOSTRIX/ADACEL VACCINE (DIPHTH/PERTUSS/ACELL/TETANUS) 0.5ML SYR IM ONE (12:15)
[2020-03-11] MEDS ORDERED: LIDOCAINE 2% MDV 20ML VIAL SC ONE (12:15)
[2020-03-11] MEDS ORDERED: MORPHINE 4 MG/ML 1ML VIAL/SYRINGE (J2270) IV ONE (13:15)
[2020-03-11] MEDS ORDERED: ONDANSETRON 4MG/2ML VIAL IV ONE (13:15)
--- NOTE | 2020-03-11 13:47 | REP ---
CT BRAIN WITHOUT CONTRAST: CT brain performed without IV contrast. Coronal reconstruction images are performed. Ventricles are normal in size and position. There is no midline shift or mass effect. Busch-white differentiation is well maintained. There are mild left basal ganglia calcifications. There is no acute intracranial hemorrhage or extra-axial fluid collection. Bone window examination demonstrates no skull fracture. IMPRESSION: No evidence of acute intracranial hemorrhage or skull fracture. Electronically Signed by Nino Busch MD 03/11/2020 02:29 P
--- NOTE | 2020-03-11 13:49 | REP ---
CT CERVICAL SPINE: CT cervical spine performed in the axial plane. Sagittal and coronal reconstruction images are performed. There is no fracture or dislocation. Vertebral bodies are normal in height and are well aligned with normal cervical lordosis. There is no prevertebral soft tissue swelling. Disc spaces are well preserved. There is no abnormal density in the spinal canal. IMPRESSION: No evidence of fracture or dislocation. Electronically Signed by Nino Busch MD 03/11/2020 02:29 P
--- NOTE | 2020-03-11 13:51 | REP ---
CT MAXILLOFACIAL BONES: CT maxillofacial bones performed in the axial plane. Sagittal and coronal reconstruction images are performed. There is a comminuted fracture of the nasal bones. There is no depression. There is adjacent opacification of the right nasal cavity. Mild fluid is seen in the right ethmoid sinuses. No other fracture is seen of the maxillofacial bones. IMPRESSION: Comminuted fracture of the nasal bones essentially nondisplaced and nondepressed. Electronically Signed by Nino Busch MD 03/11/2020 02:30 P
[2020-03-11] MEDS ORDERED: cefTRIAXone SOD 1 GM in D5W MINI-BAG PLUS 50 ML IV ONE (14:15)
[2020-03-11] MEDS ORDERED: KEFL500C17 PO (14:22)
[2020-03-11] MEDS ORDERED: NORC1TAB7 PO (14:22)
[2020-03-11 15:15] VITALS: BP 121/74
== END 2020-03-11 15:34 | disposition home or self-care (01) ==
LOC: M ED 11:37 → EDBD 11:37 → M ED 15:34
DX: S02.2XXA Fracture of nasal bones, initial encounter for closed fracture (principal); S01.81XA Laceration without foreign body of other part of head, initial encounter; T14.8XXA Other injury of unspecified body region, initial encounter; V49.49XA Driver injured in collision with other motor vehicles in traffic accident, initial encounter; Y92.410 Unspecified street and highway as the place of occurrence of the external cause; R56.9 Unspecified convulsions; Z79.899 Other long term (current) drug therapy; F10.10 Alcohol abuse, uncomplicated; F17.210 Nicotine dependence, cigarettes, uncomplicated
CPT/HCPCS: 12013; 70450; 70486; 72125; 90471; 90715; 96365; 96375; 99284; J0696; J2270; J2405

== ENCOUNTER → 2020-04-13 | Outpatient (CLI) | payer OTHER ==
[~2020-04-13] MED LIST changes: +KEFL500C17 PO; +NORC1TAB7 PO; +PAXI40TA10 PO
[2020-04-13 16:09] LABS: BASO # 0.1 10^3/uL (0.0-0.2); BASO % 1.2 % (0.0-1.0); EOS # 0.4 10^3/uL (0.0-0.5); EOS % 3.6 % (0.0-3.0); HEMATOCRIT 39.6 % (36.0-47.0); HEMOGLOBIN 12.7 g/dl (12.0-15.5); LYMPH # 3.2 10^3/uL (1.5-5.0); LYMPH % 31.1 % (24.0-44.0); MEAN CORPUSCULAR HEMOGLOBIN 26.6 pg (27.0-33.0); MEAN CORPUSCULAR HGB CONC 32.1 g/dl (32.0-36.5); MONO % 9.3 % (0.0-5.0); NEUTROPHILS # 5.7 10^3/uL (1.5-8.5); NEUTROPHILS % 54.4 % (36.0-66.0); PLATELET COUNT, AUTOMATED 527 10^3/uL (150-450); RED BLOOD COUNT 4.77 10^6/uL (4.00-5.40); WHITE BLOOD COUNT 10.4 10^3/uL (4.0-10.0)
[2020-04-13 16:11] LABS: PERCENT SATURATION 2.7 % (13.2-45.0)
[2020-04-13 16:22] LABS: INR 0.94; PROTHROMBIN TIME 12.3 SECONDS (11.8-14.0)
[2020-04-13 16:23] LABS: PARTIAL THROMBOPLASTIN TIME 28.5 SECONDS (25.0-38.4)
[2020-04-13 17:12] LABS: ERYTHROCYTE SEDIMENTATION RATE 35 mm/hr (0-20)
== END ==
LOC: M WUC 14:43
PROVIDERS: ATTEND Internal Medicine Medical Oncology
DX: D64.9 Anemia, unspecified (principal)

== ENCOUNTER 2021-10-12 13:16 | Emergency (ER) | payer OTHER ==
[~2021-10-12] VITALS: Ht 157.5 cm; Wt 61.6 kg
[~2021-10-12 13:16] MED LIST changes: -KLOR20TA42 PO; +PANT40TA29 PO; -PANT40TA3 PO; +POTA-141 PO
[2021-10-12 13:52] LABS: BASO # 0.1 10^3/uL (0.0-0.2); EOS # 0.2 10^3/uL (0.0-0.5); EOS % 2.1 % (0.0-3.0); HEMATOCRIT 37.5 % (36.0-47.0); HEMOGLOBIN 11.6 g/dl (12.0-15.5); LYMPH # 2.8 10^3/uL (1.5-5.0); LYMPH % 30.3 % (24.0-44.0); MEAN CORPUSCULAR HEMOGLOBIN 24.6 pg (27.0-33.0); MEAN CORPUSCULAR HGB CONC 30.9 g/dl (32.0-36.5); MEAN CORPUSCULAR VOLUME 79.6 fl (80.0-96.0); MONO # 0.7 10^3/uL (0.0-0.8); MONO % 7.7 % (2.0-8.0); NEUTROPHILS # 5.3 10^3/uL (1.5-8.5); NEUTROPHILS % 58.6 % (36.0-66.0); PLATELET COUNT, AUTOMATED 466 10^3/uL (150-450); RED BLOOD COUNT 4.71 10^6/uL (4.00-5.40); WHITE BLOOD COUNT 9.1 10^3/uL (4.0-10.0)
[2021-10-12 14:06] LABS: GLUCOSE, URINE (UA) MANUAL NEGATIVE (NEGATIVE); KETONE, URINE MANUAL NEGATIVE (NEGATIVE); UROBILINOGEN, URINE MANUAL NORMAL (NORMAL)
[2021-10-12 14:07] LABS: BILIRUBIN, URINE MANUAL NEGATIVE (NEGATIVE)
[2021-10-12 14:08] LABS: RBC, URINE TNTC /hpf (0-3); SQUAMOUS EPITHELIAL CELL URINE SMALL AMOUNT /hpf (SMALL AMT)
[2021-10-12 14:09] LABS: BACTERIA, URINE NONE SEEN; HYALINE CAST, URINE NONE SEEN /lpf (0-1)
[2021-10-12 14:21] LABS: BLOOD UREA NITROGEN 10 MG/DL (7-18); CALCIUM LEVEL 8.7 MG/DL (8.5-10.1); CARBON DIOXIDE LEVEL 27 MEQ/L (21-32); CHLORIDE LEVEL 106 MEQ/L (98-107); CREATININE FOR GFR 0.65 MG/DL (0.55-1.30); GLOMERULAR FILTRATION RATE > 60.0 (>60); GLUCOSE, FASTING 103 MG/DL (70-100); HCG, SERUM QUANTITATIVE < 1.0 MIU/ML; POTASSIUM SERUM 3.8 MEQ/L (3.5-5.1); SODIUM LEVEL 138 MEQ/L (136-145)
[2021-10-12 15:29] LABS: GC DNA AMPLIFICATION NEGATIVE (NEGATIVE)
[2021-10-12] MEDS ORDERED: NORCO, ANEXSIA 5/325MG TABLET (HYDROcodone/ACETAMINOPHEN) PO ONE (16:30)
--- NOTE | 2021-10-12 17:38 | REP ---
INDICATION: heavy bleeding/cramping COMPARISON: None. TECHNIQUE: Transabdominal pelvic ultrasound followed by transvaginal examination for better evaluation of the endometrium and adnexa with color Doppler evaluation of the ovaries. FINDINGS: Bladder is under distended and measures 2.4 x 3.3 x 5.4 cm. Normal anteverted uterus measures 10.0 x 4.6 x 5.6 cm. The endometrial complex measures 13 mm thickness. No discrete uterine or endometrial abnormalities are appreciated. Evidence for Caesarean section scar. Patient is noted to be status post right oophorectomy. Left ovary is normal in vascularity (RI 0.49) and measures greater than 9.6 x 7.0 x 5.5 cm including 6.9 x 5.2 x 5.7 cm complex cyst with debris and 3.6 x 3.4 x 3.5 cm and 2.1 x 0.9 x 2.2 cm hemorrhagic cyst. No pelvic free fluid or adnexal mass lesion. IMPRESSION: 1. Mildly thickened endometrial complex without discrete uterine abnormality. 2. Complex large left ovarian cysts likely physiologic. Consider re-evaluation in 4-6 weeks to evaluate for resolution. <Electronically signed by Efraín Virgen > 10/12/21 [id number]
[2021-10-12] MEDS ORDERED: NORE5TAB PO (18:48)
[2021-10-12 18:58] VITALS: BP 140/80
--- NOTE | 2021-10-12 20:29 | CR.PDOC ---
General Date of Consultation: Oct 12, 2021 Attending Physician: DIPTI MONTEIRO MD Consultation REASON FOR CONSULTATION/CHIEF COMPLAINT: Abnormal uterine bleeding. HISTORY OF PRESENT ILLNESS: Patient is a 41-year-old G3, P3 who presents to the emergency room with abnormal uterine bleeding. Patient states that her normal menstrual cycle began September 17 and that she has been bleeding daily since then. Bleeding is intermittently heavy with passage of small clots. She is going through 3-5 pads per day. Prior to this episode her periods were typically regular. Bleeding is associated with abdominal cramping. On review of systems patient denies fevers, chills, night sweats. Denies recent weight loss or weight gain. Denies headaches/vision changes. Denies chest pain, shortness of breath, palpitations. Denies changes in appetite. Denies nausea, vomiting, diarrhea. Denies changes in urinary frequency or urgency. Denies muscle pain, weakness. ALLERGIES: Please see below. HOME MEDICATIONS: Please see below. 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 Has a remote history of abnormal Pap smears with normal follow-up. History of ovarian cysts with removal of ovary due to ruptured dermoid cyst. Denies history of STIs. FAMILY HISTORY: Denies history of ovarian, uterine, breast cancer. SOCIAL HISTORY: Endorses tobacco use and recreational marijuana. LABORATORY DATA: Please see below. ASSESSMENT/PLAN: 1. Abnormal uterine bleeding -Likely perimenopausal -Start Aygestin taper, 5 mg p.o. 3 times daily for 3 days, twice daily for 2 days, and then once daily -Has appointment scheduled on 11/20/2021 -Recommend an endometrial biopsy in the office -Discussed use of contraception to prevent menstruation 2. Ovarian cyst -No evidence of torsion -Recommend follow-up in 6 months Vital Signs/I&O Vital Signs Date Time Temp Pulse Resp B/P (MAP) Pulse Ox O2 Delivery O2 Flow Rate FiO2 10/12/21 18:58 98.0 78 19 140/80 (100) 98 Room Air Laboratory Data Labs 24H Laboratory Tests 2 10/12/21 13:43: Immature Granulocyte % (Auto) 0.3, Neutrophils (%) (Auto) 58.6, Lymphocytes (%) (Auto) 30.3, Monocytes (%) (Auto) 7.7, Eosinophils (%) (Auto) 2.1, Basophils (%) (Auto) 1.0, Neutrophils # (Auto) 5.3, Lymphocytes # (Auto) 2.8, Monocytes # (Auto) 0.7, Eosinophils # (Auto) 0.2, Basophils # (Auto) 0.1, Nucleated Red Blood Cells % (auto) 0.0, Urine Color (AXEL) REDH, Urine Appearance (AXEL) CLOUDYH, Urine pH (AXEL) 6.5, Urine Specific [place] (AXEL) 1.015, Urine Protein 3+H, Bedside Urine Glucose (UA) NEGATIVE, Bedside Urine Ketones (LAB) NEGATIVE, Bedside Urine Blood POSITIVEH, Bedside Urine Nitrite (LAB) NEGATIVE, Bedside Urine Bilirubin (LAB) NEGATIVE, Bedside Urine Urobilinogen (LAB) NORMAL, Bedside Urine Leukocyte Esterase (L NEGATIVE, Urine Sediment Examination PERFORMED, Urine RBC TNTCH, Urine WBC 3-5H, Urine Squamous Epithelial Cells SMALL AMOUNT, Urine Bacteria NONE SEEN, Urine Hyaline Casts NONE SEEN, Anion Gap 5L, Glomerular Filtration Rate > 60.0, Calcium Level 8.7, Human Chorionic Gonadotro pin, Quant < 1.0, Chlamydia trachomatis DNA ([place]) NEGATIVE, Neisseria gonorrhoeae DNA ([place]) NEGATIVE, Trichomonas vaginalis (PCR) NOT DETECTED CBC/BMP Laboratory Tests 10/12/21 13:43 Allergies Coded Allergies: No Known Allergies (Verified , 07/04/19) Home Medications Scheduled Norethindrone Acetate (Norethindrone Acetate) 5 Mg Tablet, 5 MG PO ASDIRECTED for 30 Days, #60 3tabs/day x 3 dyas, 2tabs/day x 2 days then 1 tab/day until seen DIPTI MONTEIRO MD Oct 12, 2021 20:29
--- NOTE | 2021-10-13 07:25 | ED PDOC ---
Post-Departure Follow-Up radiology report faxed to krissy Lai Sarah MD Oct 13, 2021 07:25
== END 2021-10-12 18:59 | disposition home or self-care (01) ==
LOC: M ED 13:16
DX: N89.8 Other specified noninflammatory disorders of vagina (principal); N83.202 Unspecified ovarian cyst, left side; D64.9 Anemia, unspecified; F41.9 Anxiety disorder, unspecified; Z79.899 Other long term (current) drug therapy; F10.10 Alcohol abuse, uncomplicated; F17.210 Nicotine dependence, cigarettes, uncomplicated; F12.20 Cannabis dependence, uncomplicated

== ENCOUNTER → 2021-11-19 | Outpatient (REF) | payer OTHER ==
[~2021-11-19] MED LIST changes: +NORE5TAB PO
== END ==
LOC: M SFHCWAGY 17:39
PROVIDERS: ATTEND Obstetrics & Gynecology
DX: Z12.4 Encounter for screening for malignant neoplasm of cervix (principal)

== ENCOUNTER → 2021-11-19 | Outpatient (REF) | payer OTHER | LOC: M PLALAB 12:48 | PROVIDERS: ATTEND Obstetrics & Gynecology | DX: N80.1 Endometriosis of ovary (principal); N93.0 Postcoital and contact bleeding ==

== ENCOUNTER → 2022-03-24 | Outpatient (CLI) | payer OTHER | LOC: M WHC 09:05 | PROVIDERS: ATTEND Obstetrics & Gynecology | DX: N80.1 Endometriosis of ovary (principal); Z90.721 Acquired absence of ovaries, unilateral ==

== ENCOUNTER → 2022-03-27 | Outpatient (CLI) | payer OTHER ==
[2022-03-31 17:07] LABS: HE4 51.8 pmol/L (0.0-63.6)
== END ==
LOC: M PLALAB 08:54
PROVIDERS: ATTEND Obstetrics & Gynecology
DX: N80.1 Endometriosis of ovary (principal)

== ENCOUNTER → 2022-03-27 | Outpatient (CLI) | payer OTHER | LOC: M PLAIMG 08:49 | PROVIDERS: ATTEND Physician Assistant | DX: R19.03 Right lower quadrant abdominal swelling, mass and lump (principal) ==

== ENCOUNTER → 2022-06-10 | Outpatient (REF) | payer OTHER | LOC: M LAB REF 18:59 | PROVIDERS: ATTEND Student in an Organized Health Care Education/Training Program | DX: R30.0 Dysuria (principal) ==

== ENCOUNTER → 2023-06-29 | Outpatient (REF) | payer OTHER ==
[~2023-06-29] MED LIST changes: -PAXI20TA29 PO; +PAXI20TA30 PO; -PAXI40TA10 PO; +PAXI40TA12 PO
== END ==
LOC: M SFHCWAGY 10:04
PROVIDERS: ATTEND Nurse Practitioner Family
DX: Z12.4 Encounter for screening for malignant neoplasm of cervix (principal)

== ENCOUNTER → 2023-06-29 | Outpatient (CLI) | payer OTHER | LOC: M WHC 13:43 | PROVIDERS: ATTEND Obstetrics & Gynecology | DX: Z12.31 Encounter for screening mammogram for malignant neoplasm of breast (principal) ==

== ENCOUNTER → 2023-07-16 | Outpatient (CLI) | payer OTHER | LOC: M WHC 08:14 | PROVIDERS: ATTEND Nurse Practitioner Family | DX: Z12.31 Encounter for screening mammogram for malignant neoplasm of breast (principal) ==

== ENCOUNTER → 2023-07-29 | Outpatient (REF) | payer OTHER ==
[2023-07-29 15:03] LABS: AMORPHOUS SEDIMENT SMALL (NEGATIVE); APPEARANCE, URINE TURBID (CLEAR); BACTERIA, URINE AUTO 1+ (NEGATIVE); BILIRUBIN, URINE AUTO NEGATIVE (NEGATIVE); BLOOD, URINE BLOOD 2+ (NEGATIVE); COLOR, URINE AMBER (YELLOW); GLUCOSE, URINE (UA) AUTO NEGATIVE (NEGATIVE); KETONE, URINE AUTO NEGATIVE (NEGATIVE); LEUKOCYTE ESTERASE, URINE AUTO 2+ (NEGATIVE); MUCUS, URINE SMALL (NEGATIVE); NITRITE, URINE AUTO NEGATIVE (NEGATIVE); PROTEIN, URINE AUTO 1+ mg/dL (NEGATIVE); RBC, URINE AUTO 14 /HPF (0-3); SPECIFIC GRAVITY URINE AUTO 1.019 (1.002-1.035); SQUAMOUS EPITHELIAL CELL UR AU 4 /HPF (0-6); UROBILINOGEN, URINE AUTO 0.2 mg/dL (0.0-2.0); WBC, URINE AUTO 112 /HPF (0-3)
== END ==
LOC: M SFHCWAGY 13:09
PROVIDERS: ATTEND Nurse Practitioner Family
DX: R39.15 Urgency of urination (principal); N39.0 Urinary tract infection, site not specified

== ENCOUNTER 2024-03-29 05:20 | Emergency (ER) | payer OTHER ==
[~2024-03-29] VITALS: Ht 154.9 cm; Wt 67.1 kg
[2024-03-29] MEDS: NORCO, ANEXSIA 5/325MG TABLET (HYDROcodone/ACETAMINOPHEN) PO ONE (06:35)
[2024-03-29] MEDS ORDERED: PRED20TA PO (07:54)
[2024-03-29 08:03] VITALS: BP 134/85; TEMP 97.4; O2SAT 97
== END 2024-03-29 08:00 | disposition home or self-care (01) ==
LOC: M ED 05:20
DX: G56.02 Carpal tunnel syndrome, left upper limb (principal); F17.200 Nicotine dependence, unspecified, uncomplicated

== ENCOUNTER → 2024-05-24 | Outpatient (REF) | payer OTHER ==
[~2024-05-24] MED LIST changes: +PRED20TA PO
== END ==
LOC: M LAB REF 16:11
PROVIDERS: ATTEND Nurse Practitioner Family
DX: R30.0 Dysuria (principal)

== ENCOUNTER → 2024-08-05 | Outpatient (REF) | payer OTHER ==
[2024-08-09 15:03] LABS: HPV APTIMA Not Detected (Not Detected)
== END ==
LOC: M SFHCWAGY 17:37
PROVIDERS: ATTEND Nurse Practitioner Family
DX: Z12.4 Encounter for screening for malignant neoplasm of cervix (principal); R87.5 Abnormal microbiological findings in specimens from female genital organs

== ENCOUNTER → 2024-08-05 | Outpatient (CLI) | payer OTHER | LOC: M WHC 13:09 | PROVIDERS: ATTEND Nurse Practitioner Family | DX: Z12.31 Encounter for screening mammogram for malignant neoplasm of breast (principal) ==

== ENCOUNTER → 2024-09-07 | Outpatient (CLI) | payer OTHER | LOC: M WHC 11:45 | PROVIDERS: ATTEND Nurse Practitioner Family | DX: N83.202 Unspecified ovarian cyst, left side (principal); R10.2 Pelvic and perineal pain ==

== ENCOUNTER → 2024-10-20 | Outpatient (CLI) | payer OTHER | LOC: M RAD 09:41 | PROVIDERS: ATTEND Obstetrics & Gynecology | DX: N83.202 Unspecified ovarian cyst, left side (principal) ==

== ENCOUNTER → 2025-04-19 | Outpatient (CLI) | payer OTHER ==
[~2025-04-19] MED LIST changes: +METF-1113 PO; -METF-723 PO
== END ==
LOC: M PLAIMG 12:09
DX: M54.50 Low back pain, unspecified (principal)